=== PATIENT | male | born 1980 | race African-American/Black ===

== ENCOUNTER 2018-12-17 10:19 | Emergency (ER) | payer MEDICAID ==
[~2018-12-17] VITALS: Ht 188 cm; Wt 74.8 kg
[~2018-12-17 10:19] MED LIST: IBUPROFEN600 MG ORAL; NKM
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
[2018-12-17 10:43] VITALS: BP 160/114
--- NOTE | 2018-12-17 10:47 | NUR ---
ED Nurse Note: blood and urine sent to lab
[2018-12-17] MEDS ORDERED: Morphine Sulfate 4mg/ml Inj (IV USE ONLY) IVP ONE (11:00)
[2018-12-17] MEDS ORDERED: Omnipaque-300 100ml vial INJ PRN (11:00)
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
[2018-12-17 11:15] LABS: APPEARANCE,URINE CLEAR; BILIRUBIN, URINE NEGATIVE (NEGATIVE); COLOR,URINE PALE YELLOW; GLUCOSE, URINE (UA) 2+ (NEGATIVE); KETONES,URINE 1+ (NEGATIVE); LEUKOCYTE ESTERASE ,URINE NEGATIVE (NEGATIVE); NITRITE,URINE NEGATIVE (NEGATIVE); PH,URINE 6 (4.5-8.0); PROTEIN,URINE NEGATIVE (NEGATIVE); UROBILINOGEN,URINE NORMAL MG/DL (0.0-1.0)
[2018-12-17 11:19] LABS: EOSINOPHILS % (AUTO) 0.2 % (0.0-3.0); HEMATOCRIT 38.5 % (42.0-52.0); HEMOGLOBIN 12.3 G/DL (14.2-18.0); LYMPHOCYTES % (AUTO) 8.4 % (20.0-45.0); MEAN CORPUSCULAR VOLUME 99 FL (80-99); MONOCYTES % (AUTO) 10.8 % (1.0-10.0); NEUTROPHILS % (AUTO) 78.6 % (45.0-75.0); PLATELET COUNT 174 K/UL (150-450); RED BLOOD COUNT 3.88 M/UL (4.70-6.10); RED CELL DISTRIBUTION WIDTH 13.1 % (11.6-14.8)
[2018-12-17 11:34] LABS: ANION GAP 10 mmol/L (5-15); BLOOD UREA NITROGEN 6 mg/dL (7-18); CALCIUM 8.9 MG/DL (8.5-10.1); CARBON DIOXIDE 27 MMOL/L (21-32); CHLORIDE 100 MMOL/L (98-107); CREATININE 0.9 MG/DL (0.55-1.30); POTASSIUM 3.6 MMOL/L (3.5-5.1); SODIUM 137 MMOL/L (136-145)
[2018-12-17 11:36] LABS: ALANINE AMINOTRANSFERASE 23 U/L (12-78); ALBUMIN 3.9 G/DL (3.4-5.0); ALBUMIN/GLOBULIN RATIO 1.1 (1.0-2.7); ALKALINE PHOSPHATASE 43 U/L (46-116); ASPARTATE AMINO TRANSFERASE 33 U/L (15-37); BILIRUBIN,TOTAL 0.4 MG/DL (0.2-1.0)
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
[2018-12-17] MEDS ORDERED: RANITIDINE HCL150 MG ORAL (13:43)
[2018-12-17] MEDS ORDERED: NEXIUM40 MG ORAL (13:43)
[2018-12-17] MEDS ORDERED: MAALOX MAXIMUM355 M1 PO (13:43)
[2018-12-17] MEDS ORDERED: Lidocaine 2% Visc 15ml soln ORAL ONE (13:45)
[2018-12-17 14:00] VITALS: BP 155/82
[2018-12-17 14:07] VITALS: BP 155/82
--- NOTE | 2018-12-17 14:07 | NUR ---
ER DISCHARGE NOTE: Patient is cleared to be discharged per [facility], pt is aox4, on room air, with stable vital signs. pt was given dc and prescription instructions, pt was able to verbalize understanding, pt id band and iv site removed without complications. pt is able to ambulate with steady gait. pt took all belongings. food and water provided as ordered.
== END 2018-12-17 14:07 | disposition home or self-care (01) ==
LOC: EDBD 10:19 → EMR 11:45
DX: K29.70 Gastritis, unspecified, without bleeding (principal); K21.0 Gastro-esophageal reflux disease with esophagitis; I10 Essential (primary) hypertension; E11.9 Type 2 diabetes mellitus without complications
CPT/HCPCS: 36415; 74019; 74177; 80053; 80307; 81003; 83690; 85025; 96361; 96374; 96375; J2270; J2405; Q9967; S0028; Z7502; 99284